=== PATIENT | male | born 1940 | race Caucasian/White ===

== ENCOUNTER → 2024-02-29 12:30 | Outpatient (REF) | payer MEDICARE, SELFPAY | LOC: HWRCS 12:30 | PROVIDERS: ATTENDING PHYSICIAN Internal Medicine Cardiovascular Disease; FAMILY PHYSICIAN Family Medicine | DX: Z95.2 Presence of prosthetic heart valve (principal) | CPT/HCPCS: 93306 ==

== ENCOUNTER → 2024-05-17 09:10 | Outpatient (REF) | payer OTHER, SELFPAY | LOC: RAD 09:10 | PROVIDERS: ATTENDING PHYSICIAN Family Medicine; REFERRING PHYSICIAN Surgery Vascular Surgery | DX: I71.40 Abdominal aortic aneurysm, without rupture, unspecified (principal); I72.4 Aneurysm of artery of lower extremity; I71.43 Infrarenal abdominal aortic aneurysm, without rupture | CPT/HCPCS: 93922; 93925; 93978 ==

== ENCOUNTER → 2024-12-03 07:02 | Outpatient (REF) | payer OTHER, SELFPAY | LOC: RAD 07:02 | PROVIDERS: ATTENDING PHYSICIAN Surgery Vascular Surgery; FAMILY PHYSICIAN Internal Medicine | DX: I71.43 Infrarenal abdominal aortic aneurysm, without rupture (principal) | CPT/HCPCS: 76770 ==